=== PATIENT | male | born 1980 | race Caucasian/White ===

== ENCOUNTER 2022-04-21 00:22 | Emergency (ER) | payer OTHER ==
[~2022-04-21] VITALS: Ht 170.2 cm; Wt 77.2 kg
--- OUTSIDE RECORDS SUMMARY | 2022-04-21 00:52 | XMS ---
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 Deidre has no Care Guidelines for this patient. [place] VISIT COUNT (12 MO.) 1 ESTEBAN Esparza TOTAL 1 NOTE: Visits indicate total known visits. ED/C VISIT TRACKING (12 MO.) 04/21/2022 00:23 ESTEBAN Reed OR TYPE: Emergency COMPLAINT: - VOMITING COFFEE GROUNDS INPATIENT VISIT TRACKING (12 MO.) No inpatient visits to display in this time frame [email or web address]
[2022-04-21] MEDS ORDERED: PEPCID20 MG PO (02:17)
--- NOTE | 2022-04-21 21:10 | EKG ---
[facility] [address] [place] [address] Signed Sinus rhythm with 1st degree AV block Otherwise normal ECG No previous ECGs available Confirmed by Zachary Roy MD () on 04/21/2022 9:10:04 PM Electronically Signed By: ZACHARY ROY MD 04/21/222109 PATIENT NAME: LARISSA ROQUE Electrocardiogram DATE OF : 78 PHYSICIAN: ZACHARY ROY MD REPORT #: [id number] REPORT IS CONFIDENTIAL AND NOT TO BE RELEASED WITHOUT AUTHORIZATION
== END 2022-04-21 03:17 | disposition home or self-care (01) ==
LOC: ED 00:22
DX: K92.0 Hematemesis (principal); Z20.822 Contact with and (suspected) exposure to COVID-19
CPT/HCPCS: 36415; 71045; 80053; 81001; 83690; 84484; 85025; 85610; 85730; 86850; 86900; 86901; 87502; 93005; 93010; 96374; 96375; 99285-25; C9113; C9803; G0480; J2405; J7121; U0003